=== PATIENT | female | born 1955 | race African-American/Black ===

== ENCOUNTER 2018-06-17 08:16 | Emergency (ER) | payer MEDICARE, OTHER ==
[~2018-06-17] VITALS: Ht 152.4 cm; Wt 49.9 kg
--- NOTE | 2018-06-17 08:25 | NUR ---
ED Nurse Note: patient came in to ED brought in by ambulance [facility] [id number] pt herself called [facility] from home c/o abd pain, patient moved to bed 9 and in hospital gown. pt states her pmd is Dr Calloway
[2018-06-17] MEDS ORDERED: Dicyclomine 10mg Cap ORAL ONE (08:30)
[2018-06-17] MEDS ORDERED: Haloperidol 5mg/ml Inj IM ONE (08:30)
[2018-06-17 08:40] VITALS: BP 131/87
[2018-06-17] MEDS ORDERED: LORazepam Inj 2mg/ml 1ml IM ONE (08:45)
--- NOTE | 2018-06-17 09:27 | Emergency Room Report ---
History of Present Illness General Chief Complaint: Abdominal Pain Source: Patient, EMS Present Illness HPI 63-year-old female with a history of pancreatitis, HIV, methamphetamine abuse presents with generalized pain, mainly on her abdomen, she reports she has been using methamphetamines recently, she has been agitated, and she reports nothing has been done at other facility she is going to for her pain complaints, and reports her primary care doctor is Dr. Calloway. She reports the pain is all over , denies fevers, does report nausea but has not vomited here but reports vomiting prior to arrival, denies diarrhea, fevers, shortness of breath, any other complaints. Allergies: Coded Allergies: No Known Allergies (Unverified , 06/17/18) Patient History Past Medical History: see triage record Now: No Reviewed Nursing Documentation: PMH: Agreed; PSxH: Agreed Nursing Documentation-PMH Past Medical History: No History, Except For - meth abuse, HIV, pancreatitis Review of Systems All Other Systems: negative except mentioned in HPI Physical Exam Vital Signs Date Time Temp Pulse Resp B/P (MAP) Pulse Ox O2 Delivery O2 Flow Rate FiO2 06/17/18 08:16 98.8 68 19 131/87 Room Air 06/17/18 08:40 99 Sp02 EP Interpretation: reviewed, normal General Appearance: alert, non-toxic, moderate distress - Writhing around on the stretcher, unable to sit still Head: normocephalic Eyes: bilateral eye normal inspection, bilateral eye PERRL, bilateral eye EOMI ENT: normal ENT inspection, hearing grossly normal, normal pharynx, no angioedema, normal voice, moist mucus membranes Neck: normal inspection, full range of motion, supple, supple/symm/no masses Respiratory: chest non-tender, lungs clear, normal breath sounds, no rhonchi, no respiratory distress, no retraction, no accessory muscle use, chest symmetrical, palpation of chest normal Cardiovascular #1: normal peripheral pulses, regular rate, rhythm, no edema, no gallop, no murmur, no rub Cardiovascular #2: 2+ radial (R), 2+ radial (L), 2+ dorsalis pedis (R), 2+ dorsalis pedis (L) Gastrointestinal: normal inspection, non tender, soft, no mass, no guarding, no rebound Rectal: deferred Genitourinary: normal inspection, no CVA tenderness Musculoskeletal: back normal, gait/station normal, normal range of motion, non- tender, no calf tenderness Neurologic: alert, responsive, [employer] III-XII nml as tested, motor strength/tone normal, sensory intact, speech normal Psychiatric: mood/affect normal, no suicidal/homicidal ideation, anxious Skin: normal color, no rash, warm/dry, normal turgor Lymphatic: no adenopathy Medical Decision Making Diagnostic Impression: Primary Impression: Abdominal pain ER Course Patient admits to methamphetamine abuse recently, she was given Haldol, Benadryl , Zofran, and a basic workup was obtained. She had a soft nontender abdomen, but was writhing around and difficult to assess due to this, she is alert and oriented to person place situation just requesting pain medication, and very anxious on examination. Patient found to be cocaine positive on tox screen. Ct with gallstones, labs with JESSIKA, normal electrolytes, will admit as patient still c/o pain and writing around since haldol has worn off. Last Vital Signs Date Time Temp Pulse Resp B/P (MAP) Pulse Ox O2 Delivery O2 Flow Rate FiO2 06/17/18 08:41 68 19 Room Air 06/17/18 08:40 98.8 131/87 99 Referrals: NON PHYSICIAN (PCP) CHERY AMARAL M.D Jun 17, 2018 09:27
--- NOTE | 2018-06-17 09:33 | NUR ---
ED Nurse Note: blood and urine sent down to lab. pt resting in bed.
[2018-06-17 09:35] LABS: BASOPHILS % (AUTO) 0.7 % (0.0-2.0); EOSINOPHILS % (AUTO) 0.3 % (0.0-3.0); HEMATOCRIT 39.3 % (37.0-47.0); HEMOGLOBIN 12.9 G/DL (12.0-16.0); LYMPHOCYTES % (AUTO) 17.4 % (20.0-45.0); MEAN CORPUSCULAR VOLUME 101 FL (80-99); MONOCYTES % (AUTO) 7.8 % (1.0-10.0); NEUTROPHILS % (AUTO) 73.8 % (45.0-75.0); PLATELET COUNT 243 K/UL (150-450); RED BLOOD COUNT 3.88 M/UL (4.20-5.40); RED CELL DISTRIBUTION WIDTH 13.5 % (11.6-14.8); WHITE BLOOD COUNT 9.9 K/UL (4.8-10.8)
[2018-06-17 09:35] LABS: APPEARANCE,URINE SLIGHTLY CLOUDY; BILIRUBIN, URINE NEGATIVE (NEGATIVE); GLUCOSE, URINE (UA) NEGATIVE (NEGATIVE); KETONES,URINE 1+ (NEGATIVE); LEUKOCYTE ESTERASE ,URINE 1+ (NEGATIVE); NITRITE,URINE NEGATIVE (NEGATIVE); PH,URINE 5 (4.5-8.0); PROTEIN,URINE 3+ (NEGATIVE); UROBILINOGEN,URINE NORMAL MG/DL (0.0-1.0)
[2018-06-17 09:38] LABS: COLOR,URINE YELLOW
[2018-06-17] MEDS ORDERED: TRUVADA1 TAB ORAL (09:46)
[2018-06-17 09:52] LABS: ANION GAP 12 mmol/L (5-15); BLOOD UREA NITROGEN 35 mg/dL (7-18); CALCIUM 8.7 MG/DL (8.5-10.1); CARBON DIOXIDE 23 MMOL/L (21-32); CHLORIDE 108 MMOL/L (98-107); CREATININE 2.1 MG/DL (0.55-1.30); POTASSIUM 4.4 MMOL/L (3.5-5.1); SODIUM 143 MMOL/L (136-145)
[2018-06-17 09:57] LABS: ALANINE AMINOTRANSFERASE 58 U/L (12-78); ALBUMIN 3.2 G/DL (3.4-5.0); ALBUMIN/GLOBULIN RATIO 0.8 (1.0-2.7); ALKALINE PHOSPHATASE 116 U/L (46-116); ASPARTATE AMINO TRANSFERASE 77 U/L (15-37); BILIRUBIN,TOTAL 0.7 MG/DL (0.2-1.0)
--- NOTE | 2018-06-17 10:04 | NUR ---
ED Nurse Note: notified certified medical technician assistant regarding patient now calm for CT abd,
--- NOTE | 2018-06-17 10:04 | NUR ---
ED Nurse Note: patient is resting comfortably in bed, eyes closed, patient connected to the monitor.
[2018-06-17 10:26] VITALS: BP 118/82
--- NOTE | 2018-06-17 11:56 | Diagnostic Imaging Report ---
Indication: Abdominal pain Technique: Continuous helical transaxial imaging of the abdomen and pelvis was obtained from the lung bases to the pubic symphysis. No intravenous contrast was administered. Coronal 2-D reformats were also obtained. Automatic Exposure Control was utilized. Total Dose length Product (DLP): 541.[address] Dose Index Volume (CTDIvol): 10.45 mGy Comparison: none Findings: Mild groundglass and reticular opacities at the lung bases noted likely atelectasis. There is a small cystic focus measuring 1 cm at the right lung base. The heart is enlarged. Hiatal hernia noted. There is suggestion of gallbladder wall thickening. Slightly hyperdense ovoid focus in the gallbladder lumen may be tumefactive sludge or stone. There is no nephrolithiasis or hydronephrosis appreciated. Aortoiliac calcifications are mild. There is partial visualization of the appendix which appears normal. The bladder is grossly unremarkable. There is no obvious evidence for bowel obstruction. No obvious free air or free fluid identified. Uterus is not seen. The study is significantly limited by the absence of intravenous and oral contrast. There is narrowing of intervertebral discs and accompanying endplate osteophyte formation. Hypertrophied facet joints also demonstrated. Mild anterolisthesis noted at L4-5 and also at L5-S1. IMPRESSION: Gallbladder wall thickening nonspecific. Gallstones and/or sludge noted. Normal partially visualized appendix. Status post hysterectomy. Atherosclerotic disease. Basilar atelectasis Degenerative changes of the lower lumbar spine The CT scanner at [facility] is accredited by the [employer] [place] and the scans are performed using dose optimization techniques as appropriate to a performed exam including Automatic Exposure control.
--- NOTE | 2018-06-17 15:17 | NUR ---
ED Nurse Note: report given to Migdalia TORRES at [facility]
[2018-06-17 16:57] VITALS: BP 118/82
--- NOTE | 2018-06-17 16:58 | NUR ---
ED Nurse Note: patient is being transferred via ambulance, ID band removed, patient left with all of her belongings
== END 2018-06-17 16:45 | disposition short-term general hospital (02) ==
LOC: EDBD 08:16 → EMR 08:55
DX: R10.9 Unspecified abdominal pain (principal); Z90.710 Acquired absence of both cervix and uterus
CPT/HCPCS: 36415; 74176; 80053; 80307; 81003; 83690; 85025; 96360; 96361; 96372; 99284; G0480; J1630; 80329